=== PATIENT | female | born 1945 | race Asian ===

== ENCOUNTER 2017-04-12 00:13 | Inpatient (IN) | payer MEDICARE, MEDICAID ==
[~2017-04-12] VITALS: Ht 167.6 cm; Wt 72.6 kg
[~2017-04-12 00:13] MED LIST: AMLO10TA80 PO; BENA40TA3 PO; ESOM40CA PO; MELO-106 PO; PREG75CA PO; SIMV20TA6 PO
[2017-04-12] MEDS ORDERED: KETOROLAC 30MG/ML VIAL IV STA (02:41)
[2017-04-12 02:54] LABS: CLARITY URINE CLEAR (CLEAR); COLOR URINE YELLOW (YELLOW); GLUCOSE URINE NEGATIVE (NEGATIVE); KETONES URINE NEGATIVE (NEGATIVE); LEUKOCYTE ESTERASE URINE 2+ (NEGATIVE); NITRITE URINE POSITIVE (NEGATIVE); OCCULT BLOOD URINE 1+ (NEGATIVE); PROTEIN URINE NEGATIVE (NEGATIVE); SPECIFIC GRAVITY URINE 1.022 (1.005-1.030); UROBILINOGEN URINE 0.2 E.U./dL (0.2-1.0)
[2017-04-12 03:02] LABS: BASOPHILS % 1.2 % (0.0-2.0); EOSINOPHILS % 1.8 % (0.0-5.0); HEMATOCRIT. 34.9 % (36.0-48.0); HEMOGLOBIN. 11.7 g/dL (12.0-16.0); LYMPHOCYTES % 45.7 % (20.0-50.0); MEAN CORPUSCULAR HEMOGLOBIN 29.7 pg (28.0-32.0); MEAN CORPUSCULAR VOLUME 88.6 fL (81.0-99.0); MONOCYTES % 6.8 % (2.0-8.0); NEUTROPHILS % 44.5 % (40.0-76.0); PLATELET 156 x1000/uL (130-400); RED BLOOD CELL COUNT 3.94 mill/uL (4.2-5.4); RED CELL DISTRIBUTION WIDTH 14.1 % (11.6-14.6)
[2017-04-12 03:06] LABS: CHLORIDE 107 mEq/L (98-107)
[2017-04-12 03:07] LABS: PROTHROMBIN TIME 10.7 sec (9.4-11.6)
[2017-04-12 03:14] LABS: CARBON DIOXIDE 29 mEq/L (21-32)
[2017-04-12] MEDS ORDERED: CEFTRIAXONE 1 G PREMIX 50 ML IV ONE (05:15)
[2017-04-12 08:30] VITALS: BP 154/87
[2017-04-12 09:00] VITALS: BP 154/87
[2017-04-12] MEDS ORDERED: BENA20TA3 (10:26)
[2017-04-12] MEDS ORDERED: METF750T2 (10:26)
[2017-04-12] MEDS ORDERED: AMLO5TAB88 (10:26)
[2017-04-12 12:00] VITALS: BP 151/91
[2017-04-12] MEDS ORDERED: DEXTROSE 50% WATER 50ML SYRINGE IV PRN (13:15)
[2017-04-12] MEDS ORDERED: SODIUM CHLORIDE 0.9% 1,000 ML IV SCH (13:15)
[2017-04-12] MEDS ORDERED: MORPHINE SULFATE 4 MG/ML CPJ (NOT FOR IM USE) IV PRN (13:15)
[2017-04-12] MEDS: ENOXAPARIN 40MG/0.4ML SYR SUBCUT SCH (15:01)
[2017-04-12 16:00] VITALS: BP 167/97
[2017-04-12] MEDS: AMLODIPINE 10MG TABLET PO SCH (16:22)
[2017-04-12] MEDS: PREGABALIN 75MG CAPSULE PO SCH (16:30)
[2017-04-12] MEDS: BLOOD SUGAR DIAGNOSTIC STRIP TEST SCH ×2 (16:34→21:28)
[2017-04-12] MEDS ORDERED: CLONIDINE 0.1MG TABLET PO PRN (18:00)
[2017-04-12] MEDS: LEVOFLOXACIN 500MG TABLET PO SCH (18:24)
[2017-04-12] MEDS: METFORMIN HCL 500MG SR TABLET 24HR PO SCH (18:25)
[2017-04-12] MEDS: BENAZEPRIL 20MG TABLET PO SCH (18:25)
[2017-04-12] MEDS: INSULIN LISPRO 100 UNITS/ML SUBCUT SCH ×2 (18:26→21:00)
[2017-04-12 20:00] VITALS: BP 139/73
[2017-04-12] MEDS: FAMOTIDINE 20MG TABLET PO SCH (21:28)
[2017-04-13] VITALS: BP 137/78
[2017-04-13 04:00] VITALS: BP 133/82
[2017-04-13] MEDS ORDERED: CEFTRIAXONE 1 G PREMIX 50 ML IV SCH (07:00)
[2017-04-13] MEDS: INSULIN LISPRO 100 UNITS/ML SUBCUT SCH ×2 (07:06→11:47)
[2017-04-13] MEDS: BLOOD SUGAR DIAGNOSTIC STRIP TEST SCH ×2 (07:06→11:47)
[2017-04-13 08:00] VITALS: BP 132/83
[2017-04-13] MEDS: ENOXAPARIN 40MG/0.4ML SYR SUBCUT SCH ×2 (09:00→09:50)
[2017-04-13] MEDS ORDERED: AMLODIPINE 10MG TABLET PO SCH (09:00)
[2017-04-13] MEDS: METFORMIN HCL 500MG SR TABLET 24HR PO SCH (09:48)
[2017-04-13] MEDS: PREGABALIN 75MG CAPSULE PO SCH ×3 (09:49→16:16)
[2017-04-13] MEDS: BENAZEPRIL 20MG TABLET PO SCH (09:49)
[2017-04-13] MEDS: FAMOTIDINE 20MG TABLET PO SCH (09:49)
[2017-04-13] MEDS: AMLODIPINE 10MG TABLET PO SCH (09:49)
[2017-04-13] MEDS: LEVOFLOXACIN 500MG TABLET PO SCH (11:45)
[2017-04-13 12:00] VITALS: BP 134/82
[2017-04-13 16:00] VITALS: BP 142/82
[2017-04-13 18:26] VITALS: BP 142/82
== END 2017-04-13 18:45 | disposition home or self-care (01) | DRG 872 ==
LOC: ER 00:13 → 6EST 05:15 → ENRESERV 06:34
PROVIDERS: ADMIT Internal Medicine Nephrology; ATTEND Internal Medicine Nephrology
DX: A41.9 Sepsis, unspecified organism (principal); E11.40 Type 2 diabetes mellitus with diabetic neuropathy, unspecified; K50.90 Crohn's disease, unspecified, without complications; N39.0 Urinary tract infection, site not specified; I10 Essential (primary) hypertension; E78.00 Pure hypercholesterolemia, unspecified; Z88.8 Allergy status to other drugs, medicaments and biological substances
CPT/HCPCS: 36415; 74176; 80053; 81001; 82962; 83690; 85025; 85610; 87040; 87077; 87086; 87186; 96365; 96375; 99285; A4565; C1893; J0696; J1650; J1815; J1885; J2270; J7030